=== PATIENT | female | born 1940 | race Caucasian/White ===

== ENCOUNTER → 2017-02-08 | Outpatient (CLI) | payer OTHER, MEDICARE | LOC: RAD 05:16 | DX: Z12.31 Encounter for screening mammogram for malignant neoplasm of breast (principal) ==

== ENCOUNTER → 2018-02-14 | Outpatient (CLI) | payer OTHER, MEDICARE | LOC: RAD 03:57 | DX: Z12.31 Encounter for screening mammogram for malignant neoplasm of breast (principal) ==

== ENCOUNTER → 2019-07-31 | Outpatient (CLI) | payer OTHER, MEDICARE | LOC: RAD 03:00 | DX: Z12.31 Encounter for screening mammogram for malignant neoplasm of breast (principal) ==